=== PATIENT | female | born 1980 ===

== ENCOUNTER 2024-10-24 05:50 | Day surgery (SDC) | payer OTHER ==
[2024-10-21 10:32] VITALS: BP 121/78
[~2024-10-24] VITALS: Ht 149.9 cm; Wt 71.2 kg
[~2024-10-24 05:50] MED LIST: SYNTHROID112 MCG PO
[2024-10-24] MEDS ORDERED: POVIDONE-IODINE 118 ML BOTT TOP ONE (11:00)
[2024-10-24] MEDS ORDERED: MORPHINE SULFATE 4 MG/ML VIAL IV PRN (11:45)
[2024-10-24] MEDS ORDERED: PROMETHAZINE HCL 50 MG/ML AMPUL IM ONE (11:45)
[2024-10-24] MEDS ORDERED: MORPHINE SULFATE 4 MG/ML VIAL IV ONE (13:00)
== END 2024-10-24 15:50 | disposition home or self-care (01) ==
LOC: CIR.AMB 05:50
PROVIDERS: ATTEND Obstetrics & Gynecology
DX: N84.0 Polyp of corpus uteri (principal); N93.8 Other specified abnormal uterine and vaginal bleeding; E03.8 Other specified hypothyroidism; Z88.6 Allergy status to analgesic agent; Z88.4 Allergy status to anesthetic agent; Z88.0 Allergy status to penicillin; Z91.013 Allergy to seafood